=== PATIENT | male | born 1985 | race Caucasian/White ===

== ENCOUNTER 2024-01-19 08:37 | Emergency (ER) | payer OTHER ==
[~2024-01-19] VITALS: Ht 175.3 cm; Wt 79.4 kg
[2024-01-19 08:49] VITALS: BP 148/90; PULSE 110; RESP 18; TEMP 98; O2SAT 99
[2024-01-19] MEDS ORDERED: LORA-476 PO (10:54)
[2024-01-19 11:02] VITALS: BP 107/75; PULSE 85; RESP 18; TEMP 98.2; O2SAT 98
== END 2024-01-19 11:03 | disposition home or self-care (01) ==
LOC: MED 08:37
DX: F41.9 Anxiety disorder, unspecified (principal); R00.2 Palpitations
CPT/HCPCS: 99283